=== PATIENT | male | born 1950 | race Caucasian/White ===

== ENCOUNTER 2019-09-23 06:52 | Day surgery (SDC) | payer MEDICARE, OTHER ==
[2019-09-23] MEDS ORDERED: Lactated Ringers 1,000 ML IV SCH (07:32)
[2019-09-23] MEDS ORDERED: fentaNYL 100 MCG/2 ML SDV ONE (07:53)
[2019-09-23] MEDS ORDERED: Propofol 200 MG/20 ML SDV ONE ×2 (07:53→09:01)
--- NOTE | 2019-09-23 10:54 | OR ---
PRE-OPERATIVE DIAGNOSIS: History of colon polyps. Last colonoscopy was 2013. POST-OPERATIVE DIAGNOSES: 1. Two tiny polyps removed at 15 cm using cold forceps. Both of these 2 mm in size. 2. Moderate diffuse diverticulosis, left greater than right. 3. Somewhat tortuous colon. 4. Mild hemorrhoids. PROCEDURE: Colonoscopy with polypectomy x2 using cold forceps. ANESTHESIA: Monitored anesthesia care. BOWEL PREP: Good. DESCRIPTION OF PROCEDURE: Rhett is a 69-year-old male who was brought to the endoscopy suite after discussing risks and benefits of the procedure. Informed consent was obtained for conscious sedation and colonoscopy with or without biopsy and/or polypectomy. We also discussed possibility of missed lesions. Pre-procedure exam was unremarkable. IV, oxygen, and monitors were placed. The patient was placed in the left lateral decubitus position. Sedation was administered and a digital rectal exam was performed and unremarkable except for some mild hemorrhoids. Colonoscope was passed in the rectum and slowly advanced all the way to the cecum. Cecum was viewed and photographed. The patient did have somewhat tortuous colon requiring some scope maneuvering and abdominal pressure to obtain cecal intubation. Colonoscope was passed into the rectum and slowly advanced all the way to the cecum. Cecum was viewed and photographed. The colonoscope was slowly withdrawn and the mucosa was closed observed in a direct circumferential manner. The patient did have moderate diffuse diverticulosis, left greater than right. Otherwise the ascending colon unremarkable. Transverse colon unremarkable. Descending colon unremarkable. Sigmoid colon near the rectosigmoid junction revealed 2 mm polyp x2 at 15 cm. These were both removed using cold forceps. Retroflexion was performed. Rectal mucosa revealed some mild hemorrhoids, not acutely inflamed. Scope was removed. The patient tolerated the procedure well. The patient was monitored until that baseline status. Discharge instructions were reviewed and the patient was discharged in good condition. COMPLICATIONS: None. TOTAL TIME: 30 minutes. ESTIMATED BLOOD LOSS: Less than 1 mL. RECOMMENDATIONS/FOLLOW-UP: We will await results of path report to determine ideal followup interval. We will have the patient hold his aspirin for 3 days to limit any chance of bleeding. I would like to kindly thank, Dr. Anthony Reyes, for this referral. DMB: 09/23/2019 09:50:25 MODL: 09/23/2019 10:45:21 /[id number]
== END 2019-09-23 10:57 | disposition home or self-care (01) ==
LOC: VM.SDS 06:52
PROVIDERS: ATTEND Family Medicine
DX: Z12.11 Encounter for screening for malignant neoplasm of colon (principal); K63.5 Polyp of colon; K57.30 Diverticulosis of large intestine without perforation or abscess without bleeding; Q43.8 Other specified congenital malformations of intestine; K64.9 Unspecified hemorrhoids; E78.2 Mixed hyperlipidemia; E11.9 Type 2 diabetes mellitus without complications; F33.41 Major depressive disorder, recurrent, in partial remission; E66.9 Obesity, unspecified; Z79.84 Long term (current) use of oral hypoglycemic drugs; Z79.899 Other long term (current) drug therapy; Z88.0 Allergy status to penicillin; Z68.32 Body mass index [BMI] 32.0-32.9, adult
CPT/HCPCS: 45380; 82962; J2704; J3010; J7120; 00811

== ENCOUNTER 2025-08-25 09:22 | Day surgery (SDC) | payer MEDICARE, OTHER ==
[2025-08-25] MEDS: Lactated Ringers 1,000 ML IV SCH (09:40)
[2025-08-25] MEDS ORDERED: Propofol 200 MG/20 ML SDV ONE (09:59)
[2025-08-25] MEDS ORDERED: fentaNYL 100 MCG/2 ML SDV ONE (09:59)
[2025-08-25] MEDS ORDERED: Sodium Chloride 0.9% 10 ML Syringe FLUSH PRN (14:21)
== END 2025-08-25 13:15 | disposition home or self-care (01) ==
LOC: VM.SDS 09:22
PROVIDERS: ATTEND Family Medicine
DX: Z12.11 Encounter for screening for malignant neoplasm of colon (principal); D12.6 Benign neoplasm of colon, unspecified; K57.30 Diverticulosis of large intestine without perforation or abscess without bleeding; E66.9 Obesity, unspecified; E11.22 Type 2 diabetes mellitus with diabetic chronic kidney disease; N18.32 Chronic kidney disease, stage 3b; E78.5 Hyperlipidemia, unspecified; E11.42 Type 2 diabetes mellitus with diabetic polyneuropathy; Z86.0101 Personal history of adenomatous and serrated colon polyps; Z88.0 Allergy status to penicillin; Z79.899 Other long term (current) drug therapy; Z80.0 Family history of malignant neoplasm of digestive organs
CPT/HCPCS: 45380; 82947; 88305; J2704; J3010; J7120; 00811; 99100